=== PATIENT | male | born 1980 | race Caucasian/White ===

== ENCOUNTER 2020-09-06 16:02 | Emergency (ER) | payer OTHER, SELFPAY ==
--- NOTE | ~2020-09-06 | XR_ITS ---
EXAMINATION: XR finger 2nd LT min 2V DATE: 09/06/2020 16:26 INDICATION: Left hand second digit pain and swelling. TECHNIQUE: 4 views of left hand second digit were obtained. COMPARISON: None. FINDINGS: Bone alignment is normal. No fracture. Joint spaces are well maintained. There is soft tiss ue swelling of the second digit. There are punctate radiopaque foreign bodies dorsal to second proxim al interphalangeal joint. IMPRESSION: 1. Punctate radiopaque foreign bodies dorsal to second proximal interphalangeal joint. Reviewed, dictated and finalized at location A. 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
[2020-09-06 16:13] VITALS: BP 149/83; PULSE 67; RESP 12; TEMP 36.5; O2SAT 100
--- NOTE | 2020-09-06 16:15 | ED.WOUNDLAC ---
HPI - Wound/Laceration General Chief Complaint: Wound/Laceration Stated Complaint: pos finger infection Time Seen by Provider: 09/06/20 16:15 Source: patient and RN notes reviewed History of Present Illness HPI narrative: Patient is a 39-year-old male who presents the urgent care with complaints of a laceration to the left index finger. Patient states it happened yesterday while using a steel engraver. Patient states that the watch parts grinder slipped and cut above his left index finger. Patient states that he use peroxide and alcohol on the wound and his [id number] who is a school nurse applied Steri-Strips to the wound after cleansing it. Patient states that overnight it has become more swollen, painful and red. Patient states he is taken ibuprofen for the pain but feels a lot of throbbing . Patient states it is now very difficult to bend the index finger. No other acute complaints. Denies of fever, chills, nausea, vomiting. No acute distress noted. Patient is aware of the plan of care. Some parts of this dictation were generated by voice recognition software and may contain typographical and/or grammatical inaccuracies. Related Data Home Medications Medication Instructions Recorded Confirmed sertraline 100 mg PO DAILY 09/06/20 09/06/20 Allergies Allergy/AdvReac Type Severity Reaction Status Date / Time doxylamine Allergy Mild NAUSEA, Verified 09/06/20 16:14 CONFUSION, SWEATING acetaminophen [NyQuil] Allergy Unknown Nausea Verified 09/06/20 16:14 dextromethorphan [NyQuil] Allergy Unknown Nausea Verified 09/06/20 16:14 pseudoephedrine Allergy Unknown Nausea and Verified 09/06/20 16:14 Vomiting DEXTROMETHORPHAN HBR Allergy Mild NAUSEA, Uncoded 09/06/20 16:14 CONFUSION, SWEATING PSEUDOEPHEDRINE HCL Allergy Mild NAUSEA, Uncoded 09/06/20 16:14 CONFUSION, SWEATING Review of Systems Review of Systems: Narrative: CONSTITUTIONAL: Denies fever, chills, or sweats. EYES: Denies visual changes, redness, or discharge. ENT: Denies rhinorrhea, congestion, sore throat, or otalgia. CARDIOVASCULAR: Denies chest pain, palpitations, or edema. RESPIRATORY: Denies cough or dyspnea. GASTROINTESTINAL: Denies abdominal pain, nausea, vomiting, or diarrhea. GENITOURINARY: Denies dysuria or hematuria. SKIN: Reports of a laceration with surrounding swelling, redness and pain to the left index finger MUSCULOSKELETAL: Denies back pain, joint pain, or myalgia. NEUROLOGIC: Denies headache, numbness, or weakness. All other systems reviewed are negative, except as documented in HPI. PMFSH Social History Social History Smoking status: Current every day smoker Comments At the time of my signature, I reviewed and agree with the nursing past medical, surgical, social, and family history. There is no relevant family history pertinent to the patient complaint. Exam Narrative: Exam Narrative: GENERAL: This is a well-nourished, well-developed patient, in no apparent distress. HEAD: normocephalic, atraumatic. EYES: PERRL. Sclera clear/white. Vision is grossly intact. EARS: External ears normal NOSE: External nose normal with no obvious nasal discharge, nares without redness, no rhinorrhea. THROAT: Mucous membranes moist NECK: Neck supple SKIN: 1.5-2 cm approximated laceration to the PIP of the left index finger with moderate surrounding erythema and edema with notable damage to the tissue likely due from copious amounts of alcohol and peroxide NEURO: awake, alert, and oriented to person, place and time. There were no obvious focal neurologic abnormalities. EXTREMITIES: moderate edema extending from the MCP to the tip of the left index finger with capillary refill less than 2 seconds. Positive strong left radial pulse. Range of motion to left index finger limited due to pain and swelling Course Vital Signs Vital signs: Vital Signs Temperature 97.7 F 09/06/20 16:13 Pulse Rate 67 09/06/20 16:13 Respiratory Rate
[2020-09-06] MEDS: TETANUS,DIPHTHERIA,AC PERTUSSIS ADULT (0.5 ML) BOOSTRIX IM (16:44)
== END 2020-09-06 17:00 | disposition short-term general hospital (02) ==
PROVIDERS: Emergency Provider Nurse Practitioner Family; PCP Family Medicine
DX: S61.211A Laceration without foreign body of left index finger without damage to nail, initial encounter (principal); W29.8XXA Contact with other powered hand tools and household machinery, initial encounter; Z23 Encounter for immunization
CPT/HCPCS: 73140; 90471; 90715; 99213; G0463

== ENCOUNTER → 2021-07-28 03:51 | Outpatient (CLI) | payer OTHER, SELFPAY ==
[2021-08-02 22:02] LABS: SARS-CoV-2 RNA PCR Negative
== END ==
PROVIDERS: PCP Family Medicine; Visit Provider Family Medicine
DX: R68.89 Other general symptoms and signs (principal); Z20.822 Contact with and (suspected) exposure to COVID-19
CPT/HCPCS: C9803; U0003; U0005

== ENCOUNTER 2022-08-10 08:14 | Outpatient (CLI) | payer OTHER, SELFPAY ==
[2022-08-11 10:46] LABS: Basophils Absolute Auto 0.1 K/mm3 (0.0-0.1); Basophils Percent Auto 0.9 % (0.2-1.2); Eosinophils Absolute Auto 0.2 K/mm3 (0-0.3); Eosinophils Percent Auto 4.3 % (0-4.4); Hematocrit 42.5 % (42.0-52.0); Hemoglobin 13.8 g/dL (14.0-18.0); Immature Granulocyte Absolute 0.01 K/mm3 (0.00-0.031); Immature Granulocyte Percent A 0.2 % (0-0.5); Lymphocytes Absolute Auto 2.15 K/mm3 (0.9-3.2); Lymphocytes Percent Auto 38.6 % (18.3-44.2); Mean Corpuscular HGB Conc 32.5 g/dl (32-36); Mean Corpuscular Hemoglobin 27.9 pg (26-34); Mean Platelet Volume 10.5 fl (7.4-10.4); Monocytes Absolute Auto 0.6 K/mm3 (0.1-0.6); Monocytes Percent Auto 10.1 % (2.6-8.5); Neutrophils Absolute Auto 2.6 K/mm3 (1.3-6.7); Neutrophils Percent Auto 45.9 % (45.5-73.1); Platelet Count Result 261 k/mm3 (150-375); Red Blood Count 4.94 M/mm3 (4.6-6.20); Red Cell Distribution Width 13.4 % (11.5-14.5); White Blood Count 5.6 K/mm3 (4.5-10.0)
[2022-08-11 11:03] LABS: Hemoglobin A1C 5.7 % (<5.7)
[2022-08-11 11:57] LABS: Alanine Aminotransferase 21 U/L (6-50); Albumin Level 4.4 g/dL (3.5-5.1); Alkaline Phosphatase 41 U/L (38-126); Anion Gap 4 mmol/L (8-16); Aspartate Amino Transferase 50 U/L (17-59); Bilirubin,Total 0.6 mg/dL (0.2-1.3); Blood Urea Nitrogen 11 mg/dL (9-20); Calcium 8.9 mg/dL (8.4-10.2); Carbon Dioxide 30 mmol/L (22-30); Chloride 101 mmol/L (98-107); Cholesterol 189 mg/dL (0-200); Estimated Glomerular Filt Rate > 60; Glucose 82 mg/dL (65-110); HDL Direct 55 mg/dL; Potassium 4.3 mmol/L (3.4-5.0); Sodium 135 mmol/L (137-145); Triglycerides 71 mg/dL (<150)
[2022-08-11 12:05] LABS: LDL Cholesterol Direct 90 mg/dL
== END 2022-08-10 08:15 | disposition home or self-care (01) ==
PROVIDERS: PCP Emergency Medicine; Visit Provider Emergency Medicine
DX: Z00.00 Encounter for general adult medical examination without abnormal findings (principal); L98.9 Disorder of the skin and subcutaneous tissue, unspecified; G44.019 Episodic cluster headache, not intractable
CPT/HCPCS: 36415; 80053; 80061; 83036; 85025

== ENCOUNTER 2022-11-16 11:18 | Outpatient (CLI) | payer OTHER, SELFPAY ==
[2022-11-16 12:33] LABS: Kit Draw Collected
== END 2022-11-16 11:19 | disposition home or self-care (01) ==
LOC: ANHGOSHLAB 11:19
PROVIDERS: PCP Emergency Medicine; Visit Provider Clinical Nurse Specialist
DX: K92.1 Melena (principal)
CPT/HCPCS: 36415

== ENCOUNTER 2022-11-30 02:16 | Day surgery (SDC) | payer OTHER, SELFPAY ==
[2022-11-23 14:10] VITALS: BMI 23.8
[2022-11-30 11:15] VITALS: BP 104/63; PULSE 73; RESP 16; TEMP 36.1; O2SAT 100
[2022-11-30 11:23] VITALS: BMI 22.6
[2022-11-30] MEDS: LACTATED RINGERS 1,000 ML 150 ML IV CONT (11:32)
--- NOTE | 2022-11-30 11:38 | PM.HPGS ---
History of Present Illness History of Present Illness Consent: Risks, benefits, and alternatives have been discussed and questions answered. Patient agrees to proceed with procedure. Chief complaint: blood in stool Narrative: Sandoval Mckeon is a 42 year old male Presents for EGD. Patient reports over the last month he has had blood in his stool. He describes red blood which she attributes to hemorrhoids but now with occasional dark discoloration as well. He denies any abdominal pain. Patient reports colonoscopy 7 or 8 years ago that did reveal internal hemorrhoids. He did not have significant bleeding at that time. Family history is noncontributory. No reported history of colon or rectal disease. Review of Systems Review of Systems: Review of systems noncontributory. [facility] Social History Social History (Updated 11/16/22 @ 10:59 by Guerline Schulz MA) Smoking status: Current every day smoker Tobacco type: e-cigarettes/vaping Alcohol intake: former Substance use type: does not use Lack of Transportation: No Lack of Food: Never True Current Housing: I Have Housing Concerned About Future Housing: No Difficulty Paying Gas/Electric Bills: No Difficulty Paying for Meds: No Currently Unemployed: No Education: Associate Degree Difficulty w/ Childcare or Family Care: No Living arrangements: with family Spiritual care concerns: No Meds Home Medications and Allergies Home Medications Medication Instructions Recorded Confirmed Type sertraline 100 mg tablet 100 mg PO DAILY 09/06/20 11/30/22 History divalproex 500 mg tablet,delayed 500 mg PO DAILY 05/22/22 11/30/22 History release (Depakote) duloxetine 30 mg capsule,delayed 30 mg PO DAILY 05/22/22 11/30/22 History release ferrous sulfate 325 mg (65 mg 325 mg PO DAILY 11/23/22 11/30/22 History iron) tablet Allergies Allergy/AdvReac Type Severity Reaction Status Date / Time doxylamine Allergy Mild NAUSEA, Verified 11/30/22 11:21 CONFUSION, SWEATING dextromethorphan [NyQuil] Allergy Unknown Nausea Verified 11/30/22 11:21 pseudoephedrine Allergy Unknown Nausea and Verified 11/30/22 11:21 Vomiting Exam Narrative: Physical exam reveals patient to be alert. Vital signs stable. HEENT exam is unremarkable. Patient is anicteric. Lungs are clear to auscultation and percussion. Heart is without murmur or extra sounds. Abdomen bowel sounds present soft nontender with no organomegaly. Digital external rectal exam normal. Assessment and Plan Assessment and plan (1) Blood in stool: Code(s): K92.1 - Melena Status: Acute Assessment and Plan: Patient with blood in his stools. EGD is requested to exclude upper GI bleeding source. But with reddish blood in his stools would suggest that colonoscopy also be required. Plan for initial EGD today. Colonoscopy will be arranged after preparation. Recent CBC and charts noted to be normal. High-fiber diet may help if this is hemorrhoidal in nature.
--- NOTE | 2022-11-30 11:56 | P.PNAN_ITS ---
Anes - Initial Pre Proc Eval Procedure: Operation Date: 11/30/22 12:30 Proposed Procedures p Esophagogastroduodenoscopy EGD - Gaurav Graff MD Date/Time: 11/30/22 11:56 Surgeon: Gaurav Graff MD Pre Op Diagnosis: blood in stool Patient Data Age: 42 Gender: M Height: 1.85 m Weight: 78 kg Allergies Allergy/AdvReac Type Severity Reaction Status Date / Time doxylamine Allergy Mild NAUSEA, Verified 11/30/22 11:21 CONFUSION, SWEATING dextromethorphan [NyQuil] Allergy Unknown Nausea Verified 11/30/22 11:21 pseudoephedrine Allergy Unknown Nausea and Verified 11/30/22 11:21 Vomiting Home Medications Medication Instructions Recorded Confirmed Type sertraline 100 mg tablet 100 mg PO DAILY 09/06/20 11/30/22 History divalproex 500 mg tablet,delayed 500 mg PO DAILY 05/22/22 11/30/22 History release (Depakote) duloxetine 30 mg capsule,delayed 30 mg PO DAILY 05/22/22 11/30/22 History release ferrous sulfate 325 mg (65 mg 325 mg PO DAILY 11/23/22 11/30/22 History iron) tablet Patient hx anesthesia problems: none Family hx anesthesia problems: none Results Review: All pre-operative results and documents have been reviewed as part of the pre- operative evaluation. [facility] Social History Social History (Updated 11/16/22 @ 10:59 by Guerline Schulz MA) Smoking status: Current every day smoker Tobacco type: e-cigarettes/vaping Alcohol intake: former Substance use type: does not use Lack of Transportation: No Lack of Food: Never True Current Housing: I Have Housing Concerned About Future Housing: No Difficulty Paying Gas/Electric Bills: No Difficulty Paying for Meds: No Currently Unemployed: No Education: Associate Degree Difficulty w/ Childcare or Family Care: No Living arrangements: with family Spiritual care concerns: No Anes - Eval Final PreProcedure Day of Procedure 11/30/22 11:56 Patient weight: normal Heart: regular rate and rhythm Lungs: clear to auscultation Airway: Mallampati scale class II Neurological: alert and oriented Last oral intake: >/= 8 hours ASA classification: II Emergent: no Anesthetic plan: proceed Anesthesia type and monitoring: general GIVS and standard monitoring Results Review: All pre-operative results and documents have been reviewed as part of the pre- operative evaluation. Informed Consent: The patient's anesthetic plan and its attendant risks and benefits were discussed with the patient/family/POA. Questions were solicited and answers provided to the satisfaction of the patient/family/POA.
[2022-11-30 12:33] VITALS: BP 95/63; PULSE 62; RESP 24; O2SAT 98
[2022-11-30 12:43] VITALS: BP 108/74; PULSE 61; RESP 16; O2SAT 100
[2022-11-30 12:53] VITALS: BP 112/74; PULSE 64; RESP 18; O2SAT 100
== END 2022-11-30 13:01 | disposition home or self-care (01) ==
PROVIDERS: PCP Emergency Medicine; Visit Provider Internal Medicine Gastroenterology
PROC: 0DJ08ZZ Inspection of Upper Intestinal Tract, Via Natural or Artificial Opening Endoscopic (ICD-10-PCS; CPT 43235; principal; 2022-11-30 12:30)
DX: K92.1 Melena (principal); F17.290 Nicotine dependence, other tobacco product, uncomplicated
CPT/HCPCS: 43235; J2704; J7120

== ENCOUNTER 2023-01-12 02:56 | Day surgery (SDC) | payer OTHER, SELFPAY ==
[2022-12-14 16:11] VITALS: BMI 23.8
[2023-01-12 09:21] VITALS: BP 108/72; PULSE 65; RESP 16; TEMP 35.7; O2SAT 100
[2023-01-12] MEDS: LACTATED RINGERS 1,000 ML 150 ML IV CONT (09:32)
--- NOTE | 2023-01-12 09:37 | WPDHPUPDATE1 ---
History and Physical Update Update Date/Time: 01/12/23 09:37 History and Physical has been reviewed, including an updated exam of the patient. There are NO changes in the patient's condition. Risks, benefits, and alternatives have been discussed and questions answered. Patient agrees to proceed with procedure.
--- NOTE | 2023-01-12 10:01 | P.PNAN_ITS ---
Anes - Initial Pre Proc Eval Procedure: Operation Date: 01/12/23 10:30 Proposed Procedures p Colonoscopy - Gaurav Graff MD Date/Time: 01/12/23 10:01 Surgeon: Gaurav Graff MD Pre Op Diagnosis: melena Patient Data Age: 42 Gender: M Height: 1.85 m Weight: 79.2 kg Last Vital Signs Temp 96.3 F L 01/12/23 09:21 Pulse 65 01/12/23 09:21 Resp 16 01/12/23 09:21 BP 108/72 01/12/23 09:21 Pulse Ox 100 01/12/23 09:21 O2 Del Method Room Air 01/12/23 09:21 Allergies Allergy/AdvReac Type Severity Reaction Status Date / Time doxylamine Allergy Mild NAUSEA, Verified 01/12/23 09:19 CONFUSION, SWEATING dextromethorphan [NyQuil] Allergy Unknown Nausea Verified 01/12/23 09:19 pseudoephedrine Allergy Unknown Nausea and Verified 01/12/23 09:19 Vomiting Home Medications Medication Instructions Recorded Confirmed Type sertraline 100 mg tablet 100 mg PO DAILY 09/06/20 12/28/22 History divalproex 500 mg tablet,delayed 500 mg PO DAILY 05/22/22 12/28/22 History release (Depakote) duloxetine 30 mg capsule,delayed 30 mg PO DAILY 05/22/22 12/28/22 History release ferrous sulfate 325 mg (65 mg 325 mg PO DAILY 11/23/22 12/28/22 History iron) tablet Patient hx anesthesia problems: none Family hx anesthesia problems: none Results Review: All pre-operative results and documents have been reviewed as part of the pre- operative evaluation. [facility] Social History Social History Smoking status: Former smoker Tobacco type: cigarettes and e-cigarettes/vaping Alcohol intake: former Substance use type: does not use Lack of Transportation: No Lack of Food: Never True Current Housing: I Have Housing Concerned About Future Housing: No Difficulty Paying Gas/Electric Bills: No Difficulty Paying for Meds: No Currently Unemployed: No Education: Associate Degree Difficulty w/ Childcare or Family Care: No Living arrangements: with family Spiritual care concerns: No Anes - Eval Final PreProcedure Day of Procedure 01/12/23 10:01 Patient weight: normal Heart: regular rate and rhythm Lungs: clear to auscultation Airway: Mallampati scale class II Neurological: alert and oriented Last oral intake: >/= 8 hours ASA classification: II Emergent: no Anesthetic plan: proceed Anesthesia type and monitoring: general GIVS and standard monitoring Results Review: All pre-operative results and documents have been reviewed as part of the pre- operative evaluation. Informed Consent: The patient's anesthetic plan and its attendant risks and benefits were discussed with the patient/family/POA. Questions were solicited and answers provided to the satisfaction of the patient/family/POA.
[2023-01-12 10:15] VITALS: BP 106/65; PULSE 68; RESP 18; O2SAT 98
[2023-01-12 10:25] VITALS: BP 101/73; PULSE 70; RESP 18; O2SAT 98
[2023-01-12 10:35] VITALS: BP 111/76; PULSE 64; RESP 18; O2SAT 100
== END 2023-01-12 10:50 | disposition home or self-care (01) ==
PROVIDERS: PCP Emergency Medicine; Visit Provider Internal Medicine Gastroenterology
PROC: 0DJD8ZZ Inspection of Lower Intestinal Tract, Via Natural or Artificial Opening Endoscopic (ICD-10-PCS; CPT 45378; principal; 2023-01-12 10:30)
DX: Z12.11 Encounter for screening for malignant neoplasm of colon (principal); D12.2 Benign neoplasm of ascending colon; D12.5 Benign neoplasm of sigmoid colon; K64.8 Other hemorrhoids; K92.1 Melena; F17.290 Nicotine dependence, other tobacco product, uncomplicated
CPT/HCPCS: 45385; 88305; J2704; J7120

== ENCOUNTER 2023-04-21 09:53 | Emergency (ER) | payer OTHER, SELFPAY ==
--- NOTE | 2023-04-21 09:56 | ED.URI ---
HPI - URI/Sore Throat General Chief Complaint: Upper Respiratory Infection Stated Complaint: Strep symptoms Time Seen by Provider: 04/21/23 10:10 Source: patient, RN notes reviewed and old records reviewed Mode of arrival: ambulatory Limitations: no limitations History of Present Illness HPI Narrative: 42-year-old male presents to the [facility] with complaints of a sore throat since , 2 days. Has taken Tylenol and Motrin. States that he took an at-home strep test was not sure about results. Onset (ago): day(s) (2) Related Data Home Medications Medication Instructions Recorded Confirmed sertraline 100 mg tablet 100 mg PO DAILY 09/06/20 04/21/23 divalproex 500 mg tablet,delayed 500 mg PO DAILY 05/22/22 04/21/23 release (Depakote) duloxetine 30 mg capsule,delayed 30 mg PO DAILY 05/22/22 04/21/23 release ferrous sulfate 325 mg (65 mg 325 mg PO DAILY 11/23/22 04/21/23 iron) tablet Allergies Allergy/AdvReac Type Severity Reaction Status Date / Time doxylamine Allergy Mild NAUSEA, Verified 04/21/23 10:00 CONFUSION, SWEATING dextromethorphan [NyQuil] Allergy Unknown Nausea Verified 04/21/23 10:00 pseudoephedrine Allergy Unknown Nausea and Verified 04/21/23 10:00 Vomiting Review of Systems Review of Systems: All systems reviewed & are unremarkable except as noted in HPI and below Constitutional: Constitutional: Reports no additional constitutional complaints Eyes: Eyes: Reports no additional eye complaints ENT: Reports as per HPI and Reports sore throat Cardiovascular: Cardiovascular: Reports no additional cardiovascular complaints, Denies chest pain and Denies dyspnea Respiratory: Respiratory: Reports no additional respiratory complaints, Denies chest congestion, Denies cough and Denies dyspnea Gastrointestinal: Gastrointestinal: Reports no additional gastrointestinal complaints, Denies abdominal pain, Denies nausea and Denies vomiting Musculoskeletal: Musculoskeletal: Reports no additional musculoskeletal complaints Integumentary/Breasts: Skin/Breast: Reports system reviewed and no additional complaints, except as docu Neurologic: Reports system reviewed and no additional complaints, except as documented Psychiatric: Psychiatric: Reports no additional psychiatric complaints Allergic/Immunologic: Allergic/Immunologic: Reports no additional allergic/immunologic complaints PMFSH Social History Social History (Reviewed 04/21/23 @ 10:31 by CHARLY Figueroa Smoking status: Former smoker Tobacco type: cigarettes and e-cigarettes/vaping Alcohol intake: former Substance use type: does not use Lack of Transportation: No Lack of Food: Never True Current Housing: I Have Housing Concerned About Future Housing: No Difficulty Paying Gas/Electric Bills: No Difficulty Paying for Meds: No Currently Unemployed: No Education: Associate Degree Difficulty w/ Childcare or Family Care: No Living arrangements: with family Spiritual care concerns: No Comments At the time of my signature, I reviewed and agree with the nursing past medical, surgical, social, and family history. There is no relevant family history pertinent to the patient complaint. Exam Const: General: cooperative, healthy appearing, comfortable, no acute distress, well developed, alert and well nourished Nutritional Appearance: well nourished Orientation/consciousness: patient oriented x3 Limitations: no limitations HENMT: Head: normal to inspection Ears: hearing grossly normal bilaterally, external ears normal, TM's normal bilaterally and EAC's normal Face/Nose/Sinus: Normal external nose present, Normal nares present, Normal nasal mucous membranes and turbinates present and normal facial exam Face and sinus: normal facial exam Mouth: Yes Normal oral and palatal mucosa present, Yes lip normal and Yes moist mucous membranes Throat: posterior oropharynx normal, tonsils normal and uvula midlin
[2023-04-21 10:06] VITALS: BP 124/72; PULSE 95; RESP 16; TEMP 37.1; O2SAT 100
== END 2023-04-21 10:20 | disposition home or self-care (01) ==
PROVIDERS: Emergency Provider Nurse Practitioner; PCP Emergency Medicine
DX: J02.9 Acute pharyngitis, unspecified (principal); Z87.891 Personal history of nicotine dependence; D64.9 Anemia, unspecified; F32.A Depression, unspecified
CPT/HCPCS: 87081; 87880; 99213; G0463

== ENCOUNTER 2024-12-03 08:33 | Outpatient (CLI) | payer OTHER, SELFPAY ==
--- OUTSIDE RECORDS SUMMARY | 2024-12-03 08:55 | XMS_ITS | Encounter Summary ---
Author Organization [facility] Address [address] [place] [address] Care Team Providers Care Cutter Brake Lining Name Role Phone Gerardo Alexi NGUYEN Primary Care Provider Unavail able Encounter Details Date Type Department Care Team (Late st Contact Info) Description 03/20/2024 Lab Requisition [facility] - DermPath Lab [address] [facility] [place] [address] Chris Kimball MD [address] [place] [address] Social History Tobacco Use Types Packs/Day Years Used Date Smoking Tobacco: Never Assessed Sex and Gender Information Value Date Recorded Sex Assigned at Not on file 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 - Received: 03/20/2024 03:06 PM DermPath Lab Pathologist: Mone Thompson MD Specimen: Skin, right post neck 12:59 PM CDT DERMATOPATHOLOGY LABORATORY Final Diagnosis Specimen A. SKIN, right post neck: DERMAL SCAR, PRESENT AT MARGIN RESIDUAL BASAL CELL CARCINOMA NOT IDENTIFIED (L90.5) 4 12:59 PM CDT DERMATOPATHOLOGY LABORATORY Clinical History BX PROVEN BCC 4 12:59 PM CDT DERMATOPATHOLOGY LABORATORY Gross Description Specimen A: Received is one formalin filled container labeled with the patient's name and designated right post neck. The specimen consists of a curettage and desiccation biopsy measuring 7x4x1 mm. Jar 0. 4 12:59 PM CDT DERMATOPATHOLOGY LABORATORY Microscopic Description Specimen A. SKIN, right post neck: There are fibroblasts and collagen bundles oriented parallel to the skin surface. There are elongated blood vessels, some of which are oriented perpendicular to the skin surface. No basal cell carcinoma is identified. Scar is present at the margin of the specimen. 4 12:59 PM CDT DERMATOPATHOLOGY LABORATORY Disclaimer An external and internal positive and negative controls are appropriate for the histochemical, immunohistochemical and immunofluorescence stain(s) in this case (if any), except where stated explicitly. The performance characteristics of the stain(s) cited in this report were developed and its performance characteristic determined by the Dermatopathology Laboratory at [facility], directed by Dr. Bessy Woodall. These tests need not be, and therefore are not, approved by the [place] Food and Drug Administration. The tests are used for clinical purposes. Billing Codes Specimen Charges Stain Charges 87209 1 4 12:59 PM CDT DERMATOPATHOLOGY LABORATORY Embedded Images 4 12:59 PM CDT DERMATOPATHOLOGY LABORATORY Pathology/Cytolo gy TISSUE SPECIMEN FROM SKIN / Unknown 03/19/2024 3:33 AM CDT 03/20/2024 3:06 PM CDT us Chris Kimball MD LAB - PATHOLOGY/CYTOLOGY ORDERAB LES Final Result DERMATOPATHOLOGY LABORATORY [facility] - Department of Dermatology [address] [phone] documented in this encounter Visit Diagnoses Not on filedocumented in this encounter Care Teams Cutter Brake Lining Relationship Specialty Start Date End Date Alexi Carrillo II Update Information PCP - General 06/25/18 documented as of this encounter
--- OUTSIDE RECORDS SUMMARY | 2024-12-03 08:55 | XMS_ITS | Encounter Summary ---
Author Organization [facility] Address [address] [place] [address] Care Team Providers Care Tube Room Supervisor Name Role Phone Gerardo Alexi NGUYEN Primary Care Provider Unavail able Encounter Details Date Type Department Care Team (Late st Contact Info) Description 02/27/2024 Lab Requisition [facility] - DermPath Lab [address] 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 Gender Identity Not on file Sexual Orientation Not on file documented as of this encounter Plan of Treatment Not on file documented as of this encounter Procedures Procedure Name Priority Date/Time Associated Diagnosis Comments DERMATOPATHOLOGY Routine 02/26/2024 12:0 0 AM CDT documented in this encounter Results * DERMATOPATHOLOGY (02/26/2024 12:00 AM CDT) Case Report Dermatopathology Report Case: [id number] Authorizing Provider: Chris Kimball MD Collected: 02/26/2024 12:00 AM Ordering Location: [facility] - Received: 02/28/2024 07:27 AM DermPath Lab Pathologist: Cat Crabtree MD Specimen: Skin, right post neck 3:30 PM CDT DERMATOPATHOLOGY LABORATORY Final Diagnosis Specimen A. SKIN, right post neck: BASAL CELL CARCINOMA, NODULAR TYPE (C44.41) 4 3:30 PM CDT DERMATOPATHOLOGY LABORATORY Clinical History R/O BCC 3:30 PM CDT DERMATOPATHOLOGY LABORATORY Gross Description Specimen A: Received is one formalin filled container labeled with the patient's name and designated right post neck. The specimen consists of a shave biopsy measuring 5x5x1 mm. Jar 0. 3:30 PM CDT DERMATOPATHOLOGY LABORATORY Microscopic Description Specimen A. SKIN, right post neck: Within the dermis there are aggregates of basaloid cells with a high nuclear to cytoplasmic ratio and peripheral palisading. 3:30 PM CDT DERMATOPATHOLOGY LABORATORY Disclaimer An external and internal positive and negative controls are appropriate for the histochemical, immunohistochemical and immunofluorescence stain(s) in this case (if any), except where stated explicitly. The performance characteristics of the stain(s) cited in this report were developed and its performance characteristic determined by the Dermatopathology Laboratory at [facility], directed by Dr. Bessy Woodall. These tests need not be, and therefore are not, approved by the [place] Food and Drug Administration. The tests are used for clinical purposes. Billing Codes Specimen Charges Stain Charges 72544 1 4 3:30 PM CDT DERMATOPATHOLOGY LABORATORY Embedded Images 3:30 PM CDT DERMATOPATHOLOGY LABORATORY Pathology/Cytolog y TISSUE SPECIMEN FROM SKIN / Unknown 02/26/2024 02/28/2024 7:27 AM CDT us Chris Kimball MD LAB - PATHOLOGY/CYTOLOGY ORDERAB LES Final Result DERMATOPATHOLOGY LABORATORY [facility] - Department of Dermatology [address] [phone] documented in this encounter Visit Diagnoses Not on filedocumented in this encounter Care Teams Tube Room Supervisor Relationship Specialty Start Date End Date Alexi Carrillo II Update Information PCP - General 06/25/18 documented as of this encounter
--- OUTSIDE RECORDS SUMMARY | 2024-12-03 08:55 | XMS_ITS | Clinical Summary ---
Author Organization [facility] Address [address] [place] [address] Care Team Providers Care Planer Tailer Name Role Phone Alexi Carrillo II Primary Care Provider Unavail able Source Comments [facility],non-owned Affiliates and Associated Physician Practices is amultiple site organization consisting of ambulatory clinics and hospital sitesin [place], [place], [place] and [place]. This disclosure is being madepursuant to the Care Everywhere program and may not contain all information available regarding this patient. 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 Gender Identity Not on file Sexual Orientation Not on file Plan of Treatment Health Maintenance Due Date Last Done Comments COLOGUARD (AGES 45-75) - COL ON CA SCREENING 1978 COLON MONITORING 1978 COLONOSCOPY - COLON CA SCREENING 1978 CT COLONOGRAPHY - COLON CA SCREENING 1978 Colorectal Cancer Screening 1978 FIT - COLON CA SCREENING 1978 FLEX SIG - COLON CA SCREENING 1978 LIPID TESTING 1978 HIV SCREENING 1993 HEPATITIS C SCREENING 09/30/1996 DTAP/TDAP/TD VACCINES (1 - Tdap) 1997 HEPATITIS B VACCINE (1 of 3 - 19+ 3-dose series) 1997 COVID-19 VACCINE (1 - 2023-2 5 season) 2024 DEPRESSION SCREENING 08/13/2024 INFLUENZA VACCINE (Season Ended) 2025 ZOSTER VACCINE (1 of 2) 2028 HIB VACCINE Aged Out No longer eligi ble based on patient's age to complete this topic HPV VACCINE Aged Out No longer eligi ble based on patient's age to complete this topic MENINGOCOCCAL (Group B) VACC INE SHARED DECISION-MAKING Aged Out No longer eligibl e based on patient's age to complete this topic MENINGOCOCCAL GROUPS A/C/Y/W VACCINE Aged Out No longer eligible b ased on patient's age to complete this topic PNEUMOCOCCAL VACCINE Aged Out No long er eligible based on patient's age to complete this topic Insurance AETNA AETNA Care Teams Planer Tailer Relationship Specialty Start Date End Date Alexi Carrillo II Update Information PCP - General 06/25/18
--- OUTSIDE RECORDS SUMMARY | 2024-12-03 08:56 | XMS_ITS | Patient Health Record ---
Author Organization [facility] [employer] Address [address] [place] [address] Care Team Providers Care Wharf Tender Name Role Phone Cem REESE, [place] Primary Care Provider Daphne Arroyo Unavailable [phone] Migration, Provider Unavailable Unavailable Allergies No Known Allergies Reason For Referral No Information Medications Medication SIG (Take, Route, Frequency, Duration) Notes Start Date End Date Status DULoxetine HCl 30 MG 1 capsule Oral Once a day for 90 days Active Sertraline HCl 100 MG 1 tablet Oral Once a day for 90 days Active SODIUM,POTASSIUM,MA G SULFATES 17.5 GRAM-3.13 GRAM-1.6 GRAM ORAL SOLN *Reorder from [employer] for eRx and Interaction Alerts* 08/10/2023 Active HELLO HEART KIT *Reorder from [employer] for eRx and Interaction Alerts* 08/10/2023 Active Sertraline HCl 100 MG TAKE 1 TABLET BY MOUTH EVERY DAY FOR 90 DAYS for 90 Active Cymbalta 30 MG Oral 08/10/2023 Acti ve Divalproex Sodium ER 500 MG Oral 08/10/2023 Active Immunizations Vaccine Route Administration Date Status Comme nts Influenza virus vaccine, quadrivalent (IIV4), split virus, 0.25 mL dosage Unknown 06/13/2018 Administered Influenza virus vaccine, quadrivalent (IIV4), split virus, 0.25 mL dosage Unknown 07/25/2019 Administered Influenza, injectable, MDCK, preservative free Unknown 07/25/2019 Administered Influenza, injectable, MDCK, preservative free Unknown 09/03/2021 Administered Influenza, quadrivalent, split virus Unknown 07/25/2019 Administered Source VF Code: V00 - VFC eligibility not determined/unknown Pfizer [employer] Covid-19 Vaccine 2nd dose Unknown 10/21/2020 Administered Pfizer [employer] Covid-19 Vaccine 2nd dose Unknown 11/11/2020 Administered Pfizer [employer] Covid-19 Vaccine 2nd dose Unknown 09/03/2021 Administered Social History Tobacco Use: Social History Observation Description Date Details (start date - stop date) Former Smoker NA - NA Sex Assigned At : Social History Observation Description Sex Assigned At Male Tobacco Control (Standard) Question Answer Notes Tobacco use: Former smoker AUDIT-C (Standard) Question Answer Notes Did you have a drink containing alcohol in the p ast year? No Interpretation Positive Problems Problem Type SNOMED Code ICD Code Onset Dates Problem Status W/U Status Risk Notes Problem Chronic alcoholism in remission (240748665) Alcohol dependence, in remission (F10.21) 2 Active confirmed Problem Mild recurrent major depression (20354852) Major depressive disorder, recurrent, mild (F33.0) 3 Active confirmed Problem Generalized anxiety disorder (94416414) Generalized anxiety disorder (F41.1) 3 Active confirmed Problem Long-term current use of drug therapy (874433032) Other director long term care (current) drug therapy (Z79.899) 3 Active confirmed Vital Signs Heart Rate 66 /min 08/25/2024 Height-cm 185.42 cm 08/25/2024 Blood pressure diastolic 75 mm Hg 08/25/2024 Weight-kg 85.68 kg 08/25/2024 Height 73.00 in 08/25/2024 Blood pressure systolic 132 mm Hg 08/25/2024 Weight 188.9 lbs 08/25/2024 BMI 24.92 kg/m2 08/25/2024 Encounters Encounter Location Date Provider Diagnosis [email or web address] [address] [place] [address] 02/21/2024 Daphne Dunaway Major depressive disorder, recurrent, mild F33.0 ; Generalized anxiety disorder F41.1 ; Alcohol dependence, in remission F10.21 and [facility] (current[facility] drug therapy Z79.899 [email or web address] [address] [place] [address] 08/25/2024 Daphne Dunaway Major depressive disorder, recurrent, mild F33.0 ; Generalized anxiety disorder F41.1 ; Alcohol dependence, in remission F10.21 and Other director long term care (current) drug therapy Z79.899 [facility] [address] [place] [address] 12/29/2023 Provider Migration [facility] [address] [place] [address] 12/30/2023 Provider Migration Assessments Encounter Date Diagnosis (ICD Code) Assessment Notes Treatment Notes Treatment Clinical Notes Section Notes 02/21/2024 Major depressive disorder, recurrent, mild (ICD-10 - F33.0) 1. Mild recurrent major depression -Zoloft 100 mg daily Cymbalta 30 mg daily educated on all medications, benefits, side effects and risk, and educated on depression, anxiety, and mood d/o and educated on compliance of medications, appointment's, continue therapy discussion with patient about course of treatment and patient instructions. labs done PCP neurologist for labs F33.0: Major depressive disorder, recurrent, mild duloxetine 30 mg capsule,delayed release - TAKE 1 CAPSULE BY MOUTH EVERY DAY IN THE MORNING Qty: (90) capsule Refills: 1 Pharmacy: [id number] sertraline 100 mg tablet - TAKE 1 TABLET BY MOUTH EVERY DAY IN THE MORNING Qty: (90) tablet Refills: 1 Pharmacy: [id number] 2. Generalized anxiety disorder -Zoloft 100 mg daily Cymbalta 30 mg daily F41.1: Generalized anxiety disorder 3. Long-term drug therapy -Depakote prescribed by neurologist Z79.899: Other director long term care (current) drug therapy Discussion Notes obtain labs PCP 02/21/2024 Generalized anxiety disorder (ICD-10 - F41.1) 1. Mild recurrent major depression -Zoloft 100 mg daily Cymbalta 30 mg daily educated on all medications, benefits, side effects and risk, and educated on depression, anxiety, and mood d/o and educated on compliance of medications, appointment's, continue therapy discussion with patient about course of treatment and patient instructions. labs done PCP neurologist for labs F33.0: Major depressive disorder, recurrent, mild duloxetine 30 mg capsule,delayed release - TAKE 1 CAPSULE BY MOUTH EVERY DAY IN THE MORNING Qty: (90) capsule Refills: 1 Pharmacy: [facility][id number] sertraline 100 mg tablet - TAKE 1 TABLET BY MOUTH EVERY DAY IN THE MORNING Qty: (90) tablet Refills: 1 Pharmacy: [facility][id number] 2. Generalized anxiety disorder -Zoloft 100 mg daily Cymbalta 30 mg daily F41.1: Generalized anxiety disorder 3. Long-term drug therapy -Depakote prescribed by neurologist Z79.899: Other director long term care (current) drug therapy Discussion Notes obtain labs PCP 08/25/2024 Major depressive disorder, recurrent, mild (ICD-10 - F33.0) 1. Mild recurrent major depression - Zoloft 100 mg daily Cymbalta 30 mg daily educated on all medications, benefits, side effects and risk, and educated on depression, anxiety, and mood d/o and educated on compliance of medications, appointment's, continue therapy discussion with patient about course of treatment and patient instructions. labs done PCP neurologist for labs 2. Generalized anxiety disorder -Zoloft 100 mg daily Cymbalta 30 mg daily 3. Long-term drug therapy -Depakote prescribed by neurologist Discussion Notes obtain labs PCP 08/25/2024 Generalized anxiety disorder (ICD-10 - F41.1) 1. Mild recurrent major depression - Zoloft 100 mg daily Cymbalta 30 mg daily educated on all medications, benefits, side effects and risk, and educated on depression, anxiety, and mood d/o and educated on compliance of medications, appointment's, continue therapy discussion with patient about course of treatment and patient instructions. labs done PCP neurologist for labs 2. Generalized anxiety disorder -Zoloft 100 mg daily Cymbalta 30 mg daily 3. Long-term drug therapy -Depakote prescribed by neurologist Discussion Notes obtain labs PCP 08/25/2024 Alcohol dependence, in remission (ICD-10 - F10.21) 1. Mild recurrent major depression - Zoloft 100 mg daily Cymbalta 30 mg daily educated on all medications, benefits, side effects and risk, and educated on depression, anxiety, and mood d/o and educated on compliance of medications, appointment's, continue therapy discussion with patient about course of treatment and patient instructions. labs done PCP neurologist for labs 2. Generalized anxiety disorder -Zoloft 100 mg daily Cymbalta 30 mg daily 3. Long-term drug therapy -Depakote prescribed by neurologist Discussion Notes obtain labs PCP 02/21/2024 Alcohol dependence, in remission (ICD-10 - F10.21) 1. Mild recurrent major depression -Zoloft 100 mg daily Cymbalta 30 mg daily educated on all medications, benefits, side effects and risk, and educated on depression, anxiety, and mood d/o and educated on compliance of medications, appointment's, continue therapy discussion with patient about course of treatment and patient instructions. labs done PCP neurologist for labs F33.0: Major depressive disorder, recurrent, mild duloxetine 30 mg capsule,delayed release - TAKE 1 CAPSULE BY MOUTH EVERY DAY IN THE MORNING Qty: (90) capsule Refills: 1 Pharmacy: [facility][id number] sertraline 100 mg tablet - TAKE 1 TABLET BY MOUTH EVERY DAY IN THE MORNING Qty: (90) tablet Refills: 1 Pharmacy: [facility][id number] 2. Generalized anxiety disorder -Zoloft 100 mg daily Cymbalta 30 mg daily F41.1: Generalized anxiety disorder 3. Long-term drug therapy -Depakote prescribed by neurologist Z79.899: Other director long term care (current) drug therapy Discussion Notes obtain labs PCP 08/25/2024 Other director long term care (current) drug therapy (ICD-10 - Z79.899) 1. Mild recurrent major depression - Zoloft 100 mg daily Cymbalta 30 mg daily educated on all medications, benefits, side effects and risk, and educated on depression, anxiety, and mood d/o and educated on compliance of medications, appointment's, continue therapy discussion with patient about course of treatment and patient instructions. labs done PCP neurologist for labs 2. Generalized anxiety disorder -Zoloft 100 mg daily Cymbalta 30 mg daily 3. Long-term drug therapy -Depakote prescribed by neurologist Discussion Notes obtain labs PCP 02/21/2024 Other director long term care (current) drug therapy (ICD-10 - Z79.899) 1. Mild recurrent major depression -Zoloft 100 mg daily Cymbalta 30 mg daily educated on all medications, benefits, side effects and risk, and educated on depression, anxiety, and mood d/o and educated on compliance of medications, appointment's, continue therapy discussion with patient about course of treatment and patient instructions. labs done PCP neurologist for labs F33.0: Major depressive disorder, recurrent, mild duloxetine 30 mg capsule,delayed release - TAKE 1 CAPSULE BY MOUTH EVERY DAY IN THE MORNING Qty: (90) capsule Refills: 1 Pharmacy: [facility][id number] sertraline 100 mg tablet - TAKE 1 TABLET BY MOUTH EVERY DAY IN THE MORNING Qty: (90) tablet Refills: 1 Pharmacy: [facility][id number] 2. Generalized anxiety disorder -Zoloft 100 mg daily Cymbalta 30 mg daily F41.1: Generalized anxiety disorder 3. Long-term drug therapy -Depakote prescribed by neurologist Z79.899: Other director long term care (current) drug therapy Discussion Notes obtain labs PCP Plan Of Treatment Next Appt Details Provider Name:Daphne Dunaway , 02/23/2025 04:15:00 PM, [address], [facility] [address], [place], [address], Insurance Providers Payer Name Payer Address Payer Phone Subscriber Number Group Number Insured Name Patient Relationship to Insured Coverage Start Date Coverage End Date [employer] Pos [address] [place] [address] [id number] ISAIAS DAWSON [place] Self - patient is the insured Medical (General) History Medical History History ICD Code Problems: Chronic alcoholism in remissio n Electronic cigarette user Generalized anxiety disorder Long-term drug therapy Mild recurrent major depression Recurrent major depressive episodes, mod erate Tobacco user , Surgical History Surgery Date(Month/Year) Appendectomy (02770) 09/13/2018 Other 09/13/2018
[2024-12-03 19:55] LABS: INR 0.9; Prothrombin Time 12.9 Seconds (11.1-14.7)
[2024-12-03 20:01] LABS: Hematocrit 42.5 % (42.0-52.0); Hemoglobin 13.2 g/dL (14.0-18.0); Mean Corpuscular HGB Conc 31.1 g/dl (32-36); Mean Corpuscular Volume 86.9 fl (80-100); Mean Platelet Volume 10.4 fl (7.4-10.4); Platelet Count Result 262 k/mm3 (150-375); Red Blood Count 4.89 M/mm3 (4.6-6.20); Red Cell Distribution Width 14.8 % (11.5-14.5)
[2024-12-03 20:04] LABS: Valproic Acid 30.3 ug/mL (50-120)
[2024-12-03 21:21] LABS: Alanine Aminotransferase 15 U/L (6-50); Albumin Level 4.4 g/dL (3.5-5.1); Alkaline Phosphatase 42 U/L (38-126); Anion Gap 8 mmol/L (4-12); Aspartate Amino Transferase 41 U/L (17-59); Bilirubin,Total 0.3 mg/dL (0.2-1.3); Blood Urea Nitrogen 14 mg/dL (9-20); Carbon Dioxide 28 mmol/L (22-30); Chloride 102 mmol/L (98-107); Cholesterol 182 mg/dL (0-200); Estimated Glomerular Filt Rate > 60; Glucose 83 mg/dL (65-110); HDL Direct 56 mg/dL; Potassium 4.3 mmol/L (3.4-5.0); Sodium 138 mmol/L (137-145); Triglycerides 121 mg/dL (<150)
[2024-12-03 21:32] LABS: LDL Cholesterol Direct 78 mg/dL
== END 2024-12-03 08:34 | disposition home or self-care (01) ==
LOC: ANHGOSHLAB 08:33
PROVIDERS: PCP Nurse Practitioner Family; Visit Provider Nurse Practitioner Family
DX: Z79.899 Other long term (current) drug therapy (principal); K63.5 Polyp of colon; C44.91 Basal cell carcinoma of skin, unspecified; G44.009 Cluster headache syndrome, unspecified, not intractable; Z76.89 Persons encountering health services in other specified circumstances; Z00.00 Encounter for general adult medical examination without abnormal findings; Z13.220 Encounter for screening for lipoid disorders; R79.0 Abnormal level of blood mineral; C44.90 Unspecified malignant neoplasm of skin, unspecified
CPT/HCPCS: 36415; 80053; 80061; 80164; 82728; 85027; 85610